=== PATIENT | male | born 1955 | race Caucasian/White ===

== ENCOUNTER → 2016-08-31 | Outpatient (CLI) | payer MEDICARE, MEDICAID ==
[2015-03-17 11:50] VITALS: BP 151/83
[~2016-08-31] MED LIST: ALBU8.5H6 INH; ATOR10TA60 PO; BUDE10.2 IH; DICY20TA3 PO; FINA5TAB4 PO; GADOBUTROL 10 MMOL/10 ML VIAL INT ART ONE; HYDR-2762 PO; HYDR25TA9 PO; LUBI24CA5 PO; METR500T4 PO; ONDA-36 PO; OXYC15TA PO; SOLI5TAB PO; TAMS0.4C2 PO
--- NOTE | 2016-08-31 17:44 | RAD ---
PROCEDURE MRI of the lumbar spine without and with contrast 08/31/2016 HISTORY Chronic low back pain with leg weakness. History of previous lumbar spine fusion. TECHNIQUE Unenhanced T1 weighted, T2 weighted and inversion recovery sagittal and T1 weighted and T2 weighted axial images of the lumbar spine were obtained. After the intravenous administration of 10 cc of Gadavist, enhanced T1 weighted sagittal and axial images of the lumbar spine were obtained. FINDINGS Comparison study is dated 03/17/2015. Minimal S-shaped curvature of the thoracolumbar spine is seen. The patient is status post laminectomy and fusion at L5-S1 using pedicle screws, stabilizing rods and bone graft material. Degenerative signal changes are seen involving all of the discs of the lumbar spine. Degenerative signal changes are seen within the marrow surrounding these discs. The conus medullaris is normal in morphology, position, and signal characteristics. At the L1-2 and L2-3 disc spaces there are mild generalized disc bulges. Degenerative changes are seen involving the facet joints bilaterally. These findings when combined do not result in significant central spinal canal or neural foraminal stenosis. At the L3-4 disc space there is a mild generalized disc bulge. Degenerative changes are seen involving the facet joints bilaterally. There is mild to moderate ligamentum flavum hypertrophy bilaterally. These findings when combined result in mild central spinal canal stenosis. Mild bilateral neural foraminal stenosis is seen. At the L5-S1 disc space there is mild generalized disc bulge. Degenerative changes are seen involving the facet joints bilaterally. There is moderate ligamentum flavum hypertrophy. These findings when combined result in mild central spinal canal stenosis. No neural foraminal stenosis is seen. At the L5-S1 disc space degenerative changes are seen involving the facet joints bilaterally. No significant central spinal canal or neural foraminal stenosis is seen. Since the previous examination there has been no significant interval change. IMPRESSION 1. Status post laminectomy and fusion at L5-S1. 2. The changes of degenerative disc disease are seen involving the lumbar spine. These findings result in mild central spinal canal stenosis at L3-4 and L4-5. Mild bilateral neural foraminal stenosis is seen at L3-4. Electronically signed by: Melvin Ramírez MD (Aug 31, 2016 17:42:48)
== END | disposition home or self-care (01) ==
LOC: MRI 09:48
DX: M48.06 Spinal stenosis, lumbar region (principal)
CPT/HCPCS: 72158; A9585

== ENCOUNTER → 2017-02-20 | Outpatient (CLI) | payer MEDICARE, OTHER ==
[2015-03-17 11:50] VITALS: BP 151/83
[~2017-02-20] MED LIST changes: -GADOBUTROL 10 MMOL/10 ML VIAL INT ART ONE; -LUBI24CA5 PO; +LUBI24CA7 PO; -METR500T4 PO; +METR500T8 PO; -ONDA-36 PO; +ONDA8TAB14 PO; -SOLI5TAB PO; +SOLI5TAB2 PO
== END | disposition home or self-care (01) ==
LOC: NM 08:06
PROVIDERS: ATTEND Internal Medicine Cardiovascular Disease

== ENCOUNTER → 2017-02-22 | Outpatient (CLI) | payer MEDICARE, OTHER ==
[2015-03-17 11:50] VITALS: BP 151/83
[~2017-02-22] MED LIST changes: +REGADENOSON 0.4 MG/5 ML DISP.SYRIN. IV ONE
--- NOTE | 2017-02-22 12:53 | RAD ---
APPROVED REPORT Test Type: Pharmacological Stress Nurse/Tech: Lary Clifford R.N. Test Indications: CAD,dyspnea Cardiac History: CABG, ND, htn, PPM Medications: See Electronic Medical Record Medical History: See Electronic Medical Record Resting EC% v-paced Resting Heart Rate: 60 bpm Resting Blood Pressure: 133/77mmHg Pretest Chest Pain: No chest pain Nurse/Tech Notes S1S2, lungs CTA Consent: The procedure was explained to the patient in lay terms. Informed consent was witnessed. Chuy eout was entered into [employer]. History and Stress Test performed by KEMAL Medina Pharm. Details Pharmacologic stress testing was performed using 0.4mg per 5ml of regadenoson given intravenously ove r 7-10 seconds. Stress Symptoms dyspnea POST EXERCISE Reason for Termination: Infusion complete Max HR: 80 bpm Max Blood Pressure: 132/62mmHg Blood Pressure response to exercise: Normal blood pressure response during stress. Heart Rate response to exercise: wnl Chest Pain: No. Arrhythmia: No. ST Change: No. INTERPRETATION Stress EKG Conclusion: Baseline EKG showed ventricular paced rhythm. Non diagnostic changes at peak stress. Imaging Protocol IMAGE PROTOCOL: Rest Tc-99m/stress Tc-99m 1 day Rest: Stress: Viability: Radiopharm.Tc99m [id number] Sestamibi Dose11.4mCi 33.4mCi Duration 15min. 10min. Img Date 02/22/2017 02/22/2017 Inj-Img [id number]. 60min. Rest Admin Site:IV - Left HandAdministrator:KEMAL Medina Stress Admin Site: IV - Left HandAdministrator: KEMAL Medina STRESS DATA End Diast. Vol.118.0mlAv. Heart Rate66.0bpm End Syst. Vol.30.0mlCO Index BSA0.0L/min Myocardial Eebn994.0gEject. Uskvyksc45.0% Stress Rates Pk. Fill Rate3.30EDV/secLVtime Pk. Fill 252.04msec Pk. Empty Rate3.86ESV/secLVtime Pk. Ytvys196.42msec 06/14 Pk. Fill1.06EDV/sec Stress Scores Regional WT0.00Summed WT0.00 Regional WM0.00Summed WM2.00 Study quality was good. Left Ventricular size was Normal at Rest and Stress. Lung uptake was Normal. Left Ventricular ejection fraction is 75%. The rest and stress images show normal perfusion, normal contraction and thickening. LV Perf. Quant 17 Seg. SSS1.00 17 Seg. SRS2.00 17 Seg. SDS1.00 Stress Defect Extent (% LAD)0.00Rest Defect Extent (% LAD)0.00Rev. Defect Extent (% LAD)0.00 Stress Defect Extent (% LCX) 5.00Rest Defect Extent (% LCX)0.00Rev. Defect Extent (% LCX)5.00 Stress Defect Extent (% RCA)0.00Rest Defect Extent (% RCA)0.00Rev. Defect Extent (% RCA)0.00 Stress Defect Extent (% TAMI)1.10Rest Defect Extent (% TAMI)0.00Rev. Defect Extent (% TAMI)1.10 Conclusion 1. Regadenoson cardioisotope stress test did not show any evidence of ischemia or infarct. 2. Normal left ventricular systolic function with ejection fraction calculated at 75%. 3. Low risk for cardiac events.
== END | disposition home or self-care (01) ==
LOC: NM 08:50
PROVIDERS: ATTEND Internal Medicine Cardiovascular Disease
DX: I25.10 Atherosclerotic heart disease of native coronary artery without angina pectoris (principal); I10 Essential (primary) hypertension; Z95.0 Presence of cardiac pacemaker; Z79.01 Long term (current) use of anticoagulants
CPT/HCPCS: 78452; 93017; 96374; 96375; 96376; A9500; J2785

== ENCOUNTER → 2017-04-05 | Outpatient (CLI) | payer MEDICARE, OTHER ==
[2015-03-17 11:50] VITALS: BP 151/83
[~2017-04-05] MED LIST changes: -REGADENOSON 0.4 MG/5 ML DISP.SYRIN. IV ONE
--- NOTE | 2017-04-05 10:13 | RAD ---
Examination: Ultrasound left lower extremity venous duplex History: Elevated d-dimer Comparison: None available Technique: Grayscale, color 2-D, spectral waveform analysis of the left lower extremity venous ultrasound Findings: The visualized common femoral vein, superficial femoral vein, popliteal vein demonstrate normal compression and augmentation of flow. The visualized calf veins are patent. Impression: No evidence of deep venous thrombosis visualized left lower extremity venous system.
== END | disposition home or self-care (01) ==
LOC: US 08:43
DX: R79.89 Other specified abnormal findings of blood chemistry (principal)
CPT/HCPCS: 93971

== ENCOUNTER → 2017-09-14 | Outpatient (CLI) | payer MEDICARE, OTHER | END | disposition home or self-care (01) | LOC: KCIC CT 13:10 | DX: M50.323 Other cervical disc degeneration at C6-C7 level (principal); R53.1 Weakness; Z98.1 Arthrodesis status; M25.78 Osteophyte, vertebrae | CPT/HCPCS: 72125 ==

== ENCOUNTER → 2017-11-07 | Outpatient (CLI) | payer MEDICARE, OTHER | END | disposition home or self-care (01) | LOC: KCIC CT 10:56 | DX: M48.061 Spinal stenosis, lumbar region without neurogenic claudication (principal); M51.36 Other intervertebral disc degeneration, lumbar region; Z98.890 Other specified postprocedural states | CPT/HCPCS: 72131 ==

== ENCOUNTER → 2019-10-14 | Outpatient (CLI) | payer MEDICARE, MEDICAID ==
[2015-03-17 11:50] VITALS: BP 151/83
[~2019-10-14] MED LIST changes: +HYDR-2145 PO; -HYDR-2762 PO; +HYDR-2765 PO; -HYDR25TA9 PO; +METR-34 PO; -METR500T8 PO; -ONDA8TAB14 PO; +ONDA8TAB17 PO; -OXYC15TA PO; +OXYC15TA3 PO
--- NOTE | 2019-10-14 14:00 | NUR ---
Pt here for MRI. Pacemaker rep here to adjust settings, pt monitored throughout, VSS. Pt tolerated without difficulty. MICHAEL RN
--- NOTE | 2019-10-14 14:47 | RAD ---
LUMBAR SPINE WO CONTRAST History: Lumbar spondylosis. Radiculopathy. Chronic pain. Technique: Multiplanar, multi sequential MR imaging was performed of the lumbar spine. Comparison: CT November 07, 2017. Findings: Posterior stabilization L3-S1. Intervertebral fusion L3-L4, L4-L5 and L5-S1. Posterior decompression L4-L5 and L5-S1. Extension of posterior stabilization compared to prior CT. Normal vertebral body height and alignment. No fracture. Conus terminates at the normal location. No evidence of nerve root clumping. L1-L2: No canal or neuroforaminal narrowing. L2-L3: No canal or neuroforaminal narrowing. Mild facet arthropathy. L3-L4: Intervertebral fusion. No canal narrowing. No definite neuroforaminal narrowing although evaluation is degraded by artifact. Facet arthropathy. L4-L5: Intervertebral fusion. Posterior decompression. No canal narrowing. No definite neuroforaminal narrowing although evaluation is degraded by artifact. L5-S1: Intervertebral fusion. Posterior decompression. No canal narrowing. No definite neuroforaminal narrowing although evaluation is degraded by artifact. Impression: 1. Posterior stabilization L3-S1 with interbody fusion. 2. Mild multilevel lumbar spondylosis. No high-grade canal or neuroforaminal narrowing. Electronically signed by: Nathaniel Treviño DO (10/14/2019 2:44 PM) [id number]
--- NOTE | 2019-10-14 15:01 | RAD ---
LUMBAR SPINE MIN 4V History: Chronic pain. History lumbar fusion. Technique: 5 views of the lumbar spine. Comparison: November 07, 2017 CT Findings: Posterior stabilization L3-S1. Intervertebral fusion L3-L4, L4-L5 and L5-S1. Posterior decompression L4 and L5. Grade 1 anterolisthesis L5 on S1, unchanged in flexion and extension. No significant change compared to prior. Normal vertebral body height. No fracture. Minimal retrolisthesis L2 on L3, unchanged in flexion and extension. No significant interval change compared to prior. Multilevel degenerative disc changes most prominent L1-L2 and L2-L3. Impression: 1. Postoperative changes L3-S1. 2. Grade 1 anterolisthesis L5 on S1 and minimal retrolisthesis L2 on L3, unchanged in flexion and extension. 3. Multilevel lumbar spinal stenosis. Electronically signed by: Nathaniel Treviño DO (10/14/2019 2:58 PM) [id number]
== END | disposition home or self-care (01) ==
LOC: MRI 13:06
PROVIDERS: ATTEND Pain Medicine Interventional Pain Medicine
DX: M46.86 Other specified inflammatory spondylopathies, lumbar region (principal); M48.061 Spinal stenosis, lumbar region without neurogenic claudication; M47.26 Other spondylosis with radiculopathy, lumbar region; G89.4 Chronic pain syndrome; Z98.1 Arthrodesis status; Z95.0 Presence of cardiac pacemaker
CPT/HCPCS: 72110; 72148

== ENCOUNTER 2019-10-24 17:12 | Emergency (ER) | payer MEDICARE, MEDICAID ==
[~2019-10-24] VITALS: Ht 177.8 cm; Wt 106.8 kg
[2019-10-24 17:34] VITALS: BP 167/89
[2019-10-24] MEDS: MORPHINE SULFATE 10 MG/ML VIAL. IM ONE (18:26)
--- NOTE | 2019-10-24 18:54 | PHYS DOC ---
Past Medical History Past Medical History: Hypertension, Prostatitis Additional Past Medical Histor: chronic back pain Past Surgical History: Pacemaker, Other Additional Past Surgical Histo: double bypass, prostrate, shoulder, knee, colon, pinky finger, multiple teodora Smoking Status: Current Every Day Smoker Alcohol Use: None Drug Use: None General Adult EDM: Chief Complaint: BACK PAIN OR INJURY HPI: HPI: Patient is a 64 year old male presents with reports of acute exacerbation of chronic back pain s/p fall while getting up to use restroom last night. Reports fell directly back onto his buttocks. Reports pain still present despite using his previously prescribed Oxycodone 10mg tabs. Reports history of multiple back surgeries and chronic pain. Denies loss of bowel/bladder. Denies head trauma or neck pain. Denies fever/chills. Denies hematuria or dysuria. Review of Systems: Review of Systems: Constitutional: Denies fever or chills Eyes: Denies change in visual acuity, redness, or eye pain HENT: Denies nasal congestion or sore throat Respiratory: Denies cough or shortness of breath Cardiovascular: Denies chest pain or palpitations GI: Denies abdominal pain, nausea, vomiting, or diarrhea : Denies dysuria or hematuria Musculoskeletal: Reports back pain; denies joint pain Integument: Denies rash or skin lesions Neurologic: Denies headache, focal weakness or sensory changes; denies loss of bowel/bladder Complete systems were reviewed and found to be within normal limits, except as documented in this note. Current Medications: Current Medications Medications (Trade) Dose Ordered Sig/[facility] Start Time Stop Time Status Last Admin Dose Admin Morphine Sulfate (Morphine Sulfate) 10 mg 1X ONCE 10/24/19 18:00 10/24/19 18:01 DC 10/24/19 18:26 10 MG Allergies: Allergies: Allergies Coded Allergies Type Severity Reaction Last Updated Verified buprenorphine Allergy Intermediate RASH 02/05/14 Yes nitroglycerin Adverse Reaction Severe PATCH CAUSED A HEADACHE 02/05/14 Yes Physical Exam: PE: Constitutional: Well developed, well nourished, uncomfortable, non-toxic appearance HENT: Normocephalic, atraumatic Eyes: Conjunctiva normal, no discharge Neck: Normal range of motion, no tenderness, supple Cardiovascular: Heart rate normal and regular rhythm Lungs & Thorax: Equal chest rise and fall, no respiratory distress Abdomen: Soft, no tenderness Skin: Warm, dry, no erythema, no rash; chronic discoloration to lumbar region (reports secondary to heating pad yang) Back: Paraspinal and midline tenderness to lower thoracic and upper lumbar regions, no CVA tenderness Extremities: No tenderness, ROM intact, no edema Neurologic: Alert and oriented X 3, no focal deficits noted Psychologic: Affect normal, judgement normal Current Patient Data: Vital Signs: Vital Signs Date Time Temp Pulse Resp B/P (MAP) Pulse Ox O2 Delivery O2 Flow Rate FiO2 10/24/19 17:34 98.4 81 18 167/89 (115) 97 Room Air 98.4 EKG: EKG: [] Radiology/Procedures: Radiology/Procedures: PROCEDURE: THORACIC SPINE 3V & LUMBAR SPINE 3V 3 views thoracic spine and 3 views lumbar spine dated 10/24/2019. No comparison available. CLINICAL INDICATION: Pain after fall. FINDINGS: 3 views of thoracic spine show normal sagittal alignment. Vertebral body heights are maintained. No paraspinous soft tissue abnormality. There are mild to moderate endplate hypertrophic changes throughout with mild multilevel disc space narrowing. Patient is status post median sternotomy with pacer device in place. 3 views of lumbar spine show normal sagittal alignment. Vertebral body heights are maintained. There is evidence of prior laminectomy and posterior lateral fusion from L3 to S1. There is a pedicle screw fragment at the S1 level on the left, unchanged from prior study. Graft material at the L3-L4, L4-L5 and L5-S1 discs, unchanged. Mild endplate hypertrophic changes throughout. Level facet arthropathy. IMPRESSION: 1. No acute radiographic abnormality. 2. Mild to moderate multilevel spondylosis with postsurgical changes, stable from prior exam. Electronically signed by: Chandler Barnes MD (10/24/2019 7:19 PM) [facility] Course & Med Decision Making: Course & Med Decision Making Pertinent Imaging studies reviewed. (See chart for details) Patient presents with HPI and physical exam concerning for acute on chronic back pain exacerbation. Patient with history of multiple surgeries to back. Now with worsening pain despite taking chronic pain meds. Some midline tenderness noted. XRs therefore obtained without acute fracture/dislocation. Pain addressed. Patient stable for discharge home with outpatient follow-up with PCP/Pain management. Discussed findings and plan with patient, who acknowledges understanding and agreement. Josephine Disclaimer: Josephine Disclaimer: This electronic medical record was generated, in whole or in part, using a voice recognition dictation system. Departure Departure Impression: Primary Impression: Back pain Qualified Codes: M54.9 - Dorsalgia, unspecified Disposition: 01 HOME, SELF-CARE Condition: STABLE Referrals: BLAKE MELO (PCP) Patient Instructions: Back Pain, Adult, [id number], Fall Prevention and Home Safety, [id number] Additional Instructions: Continue your previously prescribed pain medications and follow with your pain specialist CHANDLER VALENCIA DO October 24, 2019 18:54
--- NOTE | 2019-10-24 19:22 | RAD ---
3 views thoracic spine and 3 views lumbar spine dated 10/24/2019. No comparison available. CLINICAL INDICATION: Pain after fall. FINDINGS: 3 views of thoracic spine show normal sagittal alignment. Vertebral body heights are maintained. No paraspinous soft tissue abnormality. There are mild to moderate endplate hypertrophic changes throughout with mild multilevel disc space narrowing. Patient is status post median sternotomy with pacer device in place. 3 views of lumbar spine show normal sagittal alignment. Vertebral body heights are maintained. There is evidence of prior laminectomy and posterior lateral fusion from L3 to S1. There is a pedicle screw fragment at the S1 level on the left, unchanged from prior study. Graft material at the L3-L4, L4-L5 and L5-S1 discs, unchanged. Mild endplate hypertrophic changes throughout. Level facet arthropathy. IMPRESSION: 1. No acute radiographic abnormality. 2. Mild to moderate multilevel spondylosis with postsurgical changes, stable from prior exam. Electronically signed by: Chandler Barnes MD (10/24/2019 7:19 PM) LINDY
== END 2019-10-24 19:21 | disposition home or self-care (01) ==
LOC: ER 17:12
DX: G89.29 Other chronic pain (principal); G89.11 Acute pain due to trauma; M54.5 Low back pain; M54.6 Pain in thoracic spine; I10 Essential (primary) hypertension; F17.200 Nicotine dependence, unspecified, uncomplicated; Z95.0 Presence of cardiac pacemaker; Z88.8 Allergy status to other drugs, medicaments and biological substances; W18.39XA Other fall on same level, initial encounter; Y93.89 Activity, other specified; Y92.89 Other specified places as the place of occurrence of the external cause; Y99.8 Other external cause status
CPT/HCPCS: 72072; 72100; 96372; 99284; J2270

== ENCOUNTER → 2020-01-03 | Outpatient (CLI) | payer MEDICARE, MEDICAID ==
--- NOTE | 2020-01-03 12:28 | EEG ---
DATE OF SERVICE: 01/03/2020 ELECTROENCEPHALOGRAM EEG NUMBER: [id number]. OBJECTIVE: The patient is a 64-year-old male with hallucinations. DESCRIPTION: This is a digital study. Electrodes are placed according to the international 10-20 system. Bipolar and referential montages are available. Activation procedures typically include hyperventilation and intermittent photic stimulation. INTERPRETATION: The waking background consists of 8-9 Hz, 50-100 microvolt activity, symmetrically distributed over parietooccipital regions and reactive to eye opening. Hyperventilation and intermittent photic stimulation are noncontributory. Stage 1 sleep is achieved with normal electroencephalogram patterns. IMPRESSION: This electroencephalogram with the patient awake and asleep is within normal limits. There is no focal, paroxysmal, or epileptiform activity that would explain his hallucinations. Thank you for letting us help with the patient's care. OLGA LIDIA PARHAM MD DR: RADHA/kelsey JOB#: [id number] / [id number] BLAKE Elizabeth
== END | disposition home or self-care (01) ==
LOC: RT 09:11
PROVIDERS: ATTEND Psychiatry & Neurology Neurology with Special Qualifications in Child Neurology
DX: R44.3 Hallucinations, unspecified (principal)
CPT/HCPCS: 95816

== ENCOUNTER → 2020-02-06 | Outpatient (CLI) | payer MEDICARE, MEDICAID ==
--- NOTE | 2020-02-06 14:00 | NUR ---
Pt here for MRI of the brain, pacemaker rep here to adjust settings for procedure, VSS throughout. After the procedure pacemaker was reset by rep and pt ambulated out with steady gait. MICHAEL NGUYEN
--- NOTE | 2020-02-06 14:23 | RAD ---
EXAM: Brain MRI without contrast. HISTORY: Vertigo. TECHNIQUE: Multiplanar, multisequence magnetic resonance imaging of the brain was performed without contrast. COMPARISON: 06/02/2015 FINDINGS: There is no restricted diffusion to suggest acute or subacute infarction. There is no susceptibility effect to suggest hemorrhage. There is no mass effect or midline shift. There is no hydrocephalus. There are multiple scattered areas of signal change throughout the cerebral white matter and cinthya, most commonly due to chronic small vessel disease. There is a small suspected chronic infarct within the left thalamus. There is a focus of encephalomalacia likely due to chronic infarction within the left cerebellum. The orbits are unremarkable. The paranasal sinuses are unremarkable. There is minimal fluid within the right mastoid air cells. There are normal flow voids within the cerebral vessels. There is no suspicious calvarial lesion. IMPRESSION: 1. No acute intercranial finding. 2. Bilateral cerebral white matter changes, likely due to chronic small vessel disease. 3. New small round T2/FLAIR hyperintense lesion within the left thalamus. The absence of residual diffusion associated with this lesion favors a chronic or early chronic infarct. There is also encephalomalacia due to chronic infarction within the left cerebellum. 4. Cerebral volume loss. Electronically signed by: Sailaja Cardoso MD (02/06/2020 2:21 PM) [facility]
== END | disposition home or self-care (01) ==
LOC: MRI 12:59
PROVIDERS: ATTEND Psychiatry & Neurology Neurology with Special Qualifications in Child Neurology
DX: I73.9 Peripheral vascular disease, unspecified (principal); G93.89 Other specified disorders of brain; I63.9 Cerebral infarction, unspecified; R42 Dizziness and giddiness; G25.0 Essential tremor; R44.3 Hallucinations, unspecified
CPT/HCPCS: 70551

== ENCOUNTER → 2020-06-10 | Outpatient (CLI) | payer MEDICARE, MEDICAID ==
--- NOTE | 2020-06-10 16:30 | RAD ---
MR LUMBAR SPINE WO -[id number] History: Reason: LUMBAR SPONDYLOSIS / Spl. Instructions: / History: Technique: Multiplanar, multi sequential MR imaging was performed of the lumbar spine. Comparison: October 14, 2019 Findings: Postoperative changes posterior stabilization and interbody fusion L3-S1. Posterior decompression L4- 5 and L5-S1. Grade 1 anterolisthesis L5 on S1, unchanged. Normal vertebral body height. No fracture. Conus terminates at the normal location. No evidence of nerve root clumping. L1-L2: Minimal disc bulge. No canal or neuroforaminal narrowing. L2-L3: Minimal disc bulge. Moderate facet arthropathy. Mild subarticular recess narrowing. No canal narrowing. No neuroforaminal narrowing. L3-L4: Intervertebral fusion. No canal narrowing. No neuroforaminal narrowing although evaluation is degraded by artifact from hardware. L4-L5: Posterior decompression. Intervertebral fusion. No canal narrowing. No definite neuroforamina l narrowing although evaluation is degraded by artifact from hardware. L5-S1: Posterior decompression Intervertebral fusion. No canal narrowing. No definite neuroforaminal narrowing although evaluation is degraded by artifact from hardware. Compared the prior examination the degenerative findings are similar. Impression: 1. Posterior stabilization and interbody fusion L3-S1. 2. Mild multilevel lumbar spondylosis, unchanged. Electronically signed by: Nathaniel Treviño DO (06/10/2020 4:27 PM) [id number]
== END ==
LOC: MRI 13:46
PROVIDERS: ATTEND Pain Medicine Interventional Pain Medicine
DX: M47.816 Spondylosis without myelopathy or radiculopathy, lumbar region (principal); M51.26 Other intervertebral disc displacement, lumbar region; M43.27 Fusion of spine, lumbosacral region; M12.88 Other specific arthropathies, not elsewhere classified, other specified site; F40.240 Claustrophobia; M46.1 Sacroiliitis, not elsewhere classified; M51.37 Other intervertebral disc degeneration, lumbosacral region; G89.4 Chronic pain syndrome
CPT/HCPCS: 72148